=== PATIENT | female | born 1970 | race American Indian/Alaskan Native ===

== ENCOUNTER 2020-03-06 17:21 | Emergency (ER) | payer OTHER ==
[2020-03-06 18:18] LABS: Basophils % (Auto) 0.6 % (0.0-1.8); Eosinophils # (Auto) 0.2 K/mm3 (0.0-0.4); Eosinophils % (Auto) 3.7 % (0.0-4.3); Hematocrit 41.8 % (30.3-42.9); Hemoglobin 14.1 gm/dl (10.1-14.3); Lymphocytes # (Auto) 2.8 K/mm3 (1.2-5.4); Lymphocytes % (Auto) 45.5 % (13.4-35.0); Mean Corpuscular HGB Conc 34 % (30-34); Mean Corpuscular Volume 90 fl (79-97); Monocytes # (Auto) 0.5 K/mm3 (0.0-0.8); Monocytes % (Auto) 8.7 % (0.0-7.3); Platelet Count 324 K/mm3 (140-440); Red Blood Count 4.64 M/mm3 (3.65-5.03)
[2020-03-06 18:29] LABS: INR 0.92 (0.87-1.13); Partial Thromboplastin Time 27.3 Sec. (24.2-36.6)
[2020-03-06 18:34] LABS: Alanine Aminotransferase 15 units/L (7-56); Albumin 4.3 g/dL (3.9-5); Blood Urea Nitrogen 10 mg/dL (7-17); Calcium 9.6 mg/dL (8.4-10.2); Hemolysis Index 12
--- NOTE | 2020-03-06 18:47 | Cat Scan Report ---
CT head/brain wo con INDICATION: weakness/blurred vision. TECHNIQUE: Routine CT head without contrast. All CT scans at this location are performed using CT dos e reduction for ALARA by means of automated exposure control. COMPARISON: None. FINDINGS: BRAIN / INTRACRANIAL CONTENTS: No acute hemorrhage, mass effect, midline shift, or hydrocephalus. No appreciable acute large territorial or lacunar infarct. No chronic infarct or focal atrophy. Normal b rain volume and ventricular/sulcal size for age. ORBITS: No significant abnormality of visualized orbits. SINUSES / MASTOIDS: No significant abnormality of visualized sinuses and mastoid air cells. ADDITIONAL FINDINGS: None. IMPRESSION: 1. No acute intracranial abnormality. Signer Name: Tahir Gómez MD Signed: 03/06/2020 6:42 PM Workstation Name: [id number]
[2020-03-06 18:48] LABS: BUN/Creatinine Ratio 14
[2020-03-06] MEDS ORDERED: IBUPROFEN 400 MG TAB PO ONE (22:03)
[2020-03-06] MEDS ORDERED: ACETAMINOPHEN 325 MG TAB PO ONE (22:03)
--- NOTE | 2020-03-06 22:13 | Emergency Department Report ---
ED General Adult HPI - General Chief complaint: Neuro Symptoms/Deficit Stated complaint: ANXIETY/HYPERTENSION PUI?: No Time Seen by Provider: 03/06/20 21:39 Source: patient, RN notes reviewed Mode of arrival: Ambulatory Limitations: No Limitations - History of Present Illness Initial comments: The patient was evaluated in the emergency department for symptoms described in the history of present illness. He/she was evaluated in the context of the global COVID-19 pandemic, which necessitated consideration that the patient alberta ht be at risk for infection with the virus that causes COVID-19. Institutional protocols and algorithms that pertain to the evaluation of patients at risk for COVID-19 are in a state of rapid change based on information released by regulatory bodies including the CDC and federal and state organizations. These policies and algorithms were followed during the patient's care in the emergency department. Please note that these policies, procedures and recommendations changed on a rapid basis. The patient is a pleasant 49-year-old female, who states that she is not , has a distant history of hysterectomy, following up with a new primary care doctor this Sunday, who denies chronic medical conditions, and denies DVT, pulmonary embolism risk factors. The patient has not been sleeping well secondary to multiple reasons, and presents to the ER with a complaint of anxiety, heart racing, nontraumatic right-sided trapezius pain/paracervical neck pain, report of blurry vision, and generalized weakness. The symptoms are present for 2 weeks. They are intermittent. They worsen when she gets anxious. The patient does not have a severe or thunderclap headache, there is no midline neck pain, no recent trauma or chiropractic manipulation. She is right-hand dominant, and does cleaning for work. She has intermittent heart racing that is painless, associated with anxiety. There is no shortness of breath, vomiting, abdominal pain, irritative or obstructive urinary symptoms, and she is not homicidal or suicidal. She states that she has not had "a vision check" in a few years. She has no loss of vision. Symptoms present for the past 2 weeks, intermittent, and worsen with anxiety. -: Gradual, week(s) Severity scale (0 -10): 0 Consistency: intermittent Improves with: none Worsens with: other (As per history of present illness) - Related Data Allergies Allergy/AdvReac Type Severity Reaction Status Date / Time No Known Allergies Allergy Unverified 03/06/20 17:22 ED Review of Systems ROS: Stated complaint: ANXIETY/HYPERTENSION Other details as noted in HPI Constitutional: denies: fever Eyes: denies: eye pain, eye discharge ENT: denies: epistaxis Respiratory: denies: cough Cardiovascular: palpitations. denies: chest pain Gastrointestinal: denies: abdominal pain, nausea, vomiting Genitourinary: denies: dysuria Musculoskeletal: myalgia Neurological: headache. denies: weakness, numbness, paresthesias, confusion Psychiatric: anxiety. denies: homicidal thoughts, suicidal thoughts ED Past Medical Hx - Past Medical History Previous Medical History?: No - Surgical History Past Surgical History?: No - Social History Smoking Status: Never Smoker ED Physical Exam - General Limitations: No Limitations General appearance: alert, anxious, obese - Head Head exam: Present: atraumatic, normocephalic - Eye Eye exam: Present: normal appearance, PERRL, EOMI, other (Visual acuity intact to finger counting, color perception, reading at a close distance). Absent: nystagmus - ENT ENT exam: Present: normal exam, normal orophraynx, mucous membranes moist, nor mal external ear exam - Neck Neck exam: Present: normal inspection, full ROM, other (There is no carotid bruit). Absent: tenderness, meningismus - Respiratory Respiratory exam: Present: normal lung sounds bilaterally. Absent: respiratory distress - Cardiovascular Cardiovascular Exam: Present: regular rate, normal rhythm, normal heart sounds. Absent: bradycardia, tachycardia, irregular rhythm, systolic murmur, diastolic murmur, rubs, gallop - GI/Abdominal GI/Abdominal exam: Present: soft, normal bowel sounds. Absent: distended, tenderness, guarding, rebound, rigid, pulsatile mass - Extremities Exam Extremities exam: Present: normal inspection, full ROM, other (2+ pulses noted in the bilateral upper and lower extremities. There is no palpable cord. negative Homans sign. Muscular compartments are soft. The pelvis is stable.). Absent: pedal edema, calf tenderness - Back Exam Back exam: Present: normal inspection, full ROM. Absent: tenderness, CVA tenderness (R), CVA tenderness (L), paraspinal tenderness, vertebral tenderness - Neurological Exam Neurological exam: Present: alert, oriented X3, normal gait, other (There is no facial droop. The tongue is midline. Extraocular movements are intact bilater ally. There is 5 out of 5 strength in bilateral upper and lower extremities. Sensation is intact to light touch bilateral upper and lower extremities. There is no past-pointing. There is no pronator drift. There is normal [id number]. There is a normal gait.). Absent: motor sensory deficit - Skin Skin exam: Present: warm, dry, intact, normal color. Absent: rash ED Course Vital Signs 03/06/20 03/06/20 17:26 22:18 Temperature 98.1 F Pulse Rate 104 H 84 Respiratory 20 Rate Blood Pressure 183/106 164/74 [Right] O2 Sat by Pulse 98 98 Oximetry - Reevaluation(s) Reevaluation #1: 03/06/20 22:18 No recent chiropractic manipulation, no recent fender benders. Full range of motion to the neck noted on exam. No meningeal signs ED Medical Decision Making - Lab Data Result diagrams: 03/06/20 17:42 03/06/20 17:42 Vital Signs 03/06/20 17:26 Temperature 98.1 F Pulse Rate 104 H Respiratory 20 Rate Blood Pressure 183/106 [Right] O2 Sat by Pulse 98 Oximetry Lab Results 03/06/20 03/06/20 03/06/20 Range/Units 17:42 17:42 17:42 WBC 6.2 (4.5-11.0) K/mm3 RBC 4.64 (3.65-5.03) M/mm3 Hgb 14.1 (10.1-14.3) gm/dl Hct 41.8 (30.3-42.9) % MCV 90 (79-97) fl MCH 30 (28-32) pg MCHC 34 (30-34) % RDW 13.0 L (13.2-15.2) % Plt Count 324 (140-440) K/mm3 Lymph % (Auto) 45.5 H (13.4-35.0) % [place] % (Auto) 8.7 H (0.0-7.3) % Eos % (Auto) 3.7 (0.0-4.3) % Baso % (Auto) 0.6 (0.0-1.8) % Lymph # 2.8 (1.2-5.4) K/mm3 [place] # 0.5 (0.0-0.8) K/mm3 Eos # 0.2 (0.0-0.4) K/mm3 Baso # 0.0 (0.0-0.1) K/mm3 Seg Neutrophils % 41.5 (40.0-70.0) % Seg Neutrophils # 2.6 (1.8-7.7) K/mm3 PT 12.5 (12.2-14.9) Sec. INR 0.92 (0.87-1.13) APTT 27.3 (24.2-36.6) Sec. Sodium 136 L (137-145) mmol/L Potassium 3.7 (3.6-5.0) mmol/L Chloride 98.9 (98-107) mmol/L Carbon Dioxide 22 (22-30) mmol/L Anion Gap 19 mmol/L BUN 10 (7-17) mg/dL Creatinine 0.7 (0.6-1.2) mg/dL Estimated GFR > 60 ml/min BUN/Creatinine Ratio 14 % Glucose 114 H (65-100) mg/dL Calcium 9.6 (8.4-10.2) mg/dL Magnesium (1.7-2.3) mg/dL Total Bilirubin 0.60 (0.1-1.2) mg/dL AST 16 (5-40) units/L ALT 15 (7-56) units/L Alkaline Phosphatase 81 (35-129) units/L Total Creatine Kinase (30-135) units/L Troponin T (0.00-0.029) ng/mL Total Protein 8.2 (6.3-8.2) g/dL Albumin 4.3 (3.9-5) g/dL Albumin/Globulin Ratio 1.1 % Salicylates (2.8-20.0) mg/dL Acetaminophen (10.0-30.0) ug/mL Plasma/Serum Alcohol (0-0.07) % 03/06/20 03/06/20 03/06/20 Range/Units 17:42 17:50 17:50 WBC (4.5-11.0) K/mm3 RBC (3.65-5.03) M/mm3 Hgb (10.1-14.3) gm/dl Hct (30.3-42.9) % MCV (79-97) fl MCH (28-32) pg MCHC (30-34) % RDW (13.2-15.2) % Plt Count (140-440) K/mm3 Lymph % (Auto) (13.4-35.0) % [place] % (Auto) (0.0-7.3) % Eos % (Auto) (0.0-4.3) % Baso % (Auto) (0.0-1.8) % Lymph # (1.2-5.4) K/mm3 [place] # (0.0-0.8) K/mm3 Eos # (0.0-0.4) K/mm3 Baso # (0.0-0.1) K/mm3 Seg Neutrophils % (40.0-70.0) % Seg Neutrophils # (1.8-7.7) K/mm3 PT (12.2-14.9) Sec. INR (0.87-1.13) APTT (24.2-36.6) Sec. Sodium (137-145) mmol/L Potassium (3.6-5.0) mmol/L Chloride (98-107) mmol/L Carbon Dioxide (22-30) mmol/L Anion Gap mmol/L BUN (7-17) mg/dL Creatinine (0.6-1.2) mg/dL Estimated GFR ml/min BUN/Creatinine Ratio % Glucose (65-100) mg/dL Calcium (8.4-10.2) mg/dL Magnesium 1.70 (1.7-2.3) mg/dL Total Bilirubin (0.1-1.2) mg/dL AST (5-40) units/L ALT (7-56) units/L Alkaline Phosphatase (35-129) units/L Total Creatine Kinase 153 H (30-135) units/L Troponin T < 0.010 (0.00-0.029) ng/mL Total Protein (6.3-8.2) g/dL Albumin (3.9-5) g/dL Albumin/Globulin Ratio % Salicylates < 0.3 L (2.8-20.0) mg/dL Acetaminophen (10.0-30.0) ug/mL Plasma/Serum Alcohol (0-0.07) % 03/06/20 03/06/20 Range/Units 17:50 17:50 WBC (4.5-11.0) K/mm3 RBC (3.65-5.03) M/mm3 Hgb (10.1-14.3) gm/dl Hct (30.3-42.9) % MCV (79-97) fl MCH (28-32) pg MCHC (30-34) % RDW (13.2-15.2) % Plt Count (140-440) K/mm3 Lymph % (Auto) (13.4-35.0) % [place] % (Auto) (0.0-7.3) % Eos % (Auto) (0.0-4.3) % Baso % (Auto) (0.0-1.8) % Lymph # (1.2-5.4) K/mm3 [place] # (0.0-0.8) K/mm3 Eos # (0.0-0.4) K/mm3 Baso # (0.0-0.1) K/mm3 Seg Neutrophils % (40.0-70.0) % Seg Neutrophils # (1.8-7.7) K/mm3 PT (12.2-14.9) Sec. INR (0.87-1.13) APTT (24.2-36.6) Sec. Sodium (137-145) mmol/L Potassium (3.6-5.0) mmol/L Chloride (98-107) mmol/L Carbon Dioxide (22-30) mmol/L Anion Gap mmol/L BUN (7-17) mg/dL Creatinine (0.6-1.2) mg/dL Estimated GFR ml/min BUN/Creatinine Ratio % Glucose (65-100) mg/dL Calcium (8.4-10.2) mg/dL Magnesium (1.7-2.3) mg/dL Total Bilirubin (0.1-1.2) mg/dL AST (5-40) units/L ALT (7-56) units/L Alkaline Phosphatase (35-129) units/L Total Creatine Kinase (30-135) units/L Troponin T (0.00-0.029) ng/mL Total Protein (6.3-8.2) g/dL Albumin (3.9-5) g/dL Albumin/Globulin Ratio % Salicylates (2.8-20.0) mg/dL Acetaminophen 5.0 L (10.0-30.0) ug/mL Plasma/Serum Alcohol < 0.01 (0-0.07) % - EKG Data -: EKG Interpreted by Me EKG shows normal: sinus rhythm Rate: normal - EKG Data When compared to previous EKG there are: previous EKG unavailable 03/06/20 22:09 There is no prior EKG available for comparison. Sinus rhythm, 90 bpm, left axis deviation, poor R wave progression, QTC is 422 ms. The EKG is abnormal. The EKG is not a STEMI. Patient does not appear to have first-degree AV block on my evaluation of this EKG, contrary to computer interpretation. - Radiology Data Radiology results: report reviewed, image reviewed Noncontrast CT scan of the brain is negative for acute disease - Medical Decision Making Differential diagnosis, including but not limited to: Electrolyte derangement, anxiety, intracranial lesion, general medical examination Assessment and plan: 49-year-old female with resolved tachycardia, incidental elevated blood pressure, without DVT or pulmonary embolism risk factors, not currently tachycardic, tachypneic or hypoxic, heart rate 90 bpm, blood pressure 165/70, low risk by Wells criteria, GCS 15, NIH score of 0, low risk for major adverse cardiac event as per heart score, with an unremarkable and benign physical examination with the exception of elevated blood pressure and obvious anxiety. Patient's been having 2 weeks of symptoms. She has no objective abnormalities on her physical exam. Her laboratory studies are unremarkable. Counseled patient that she is very unlikely to have an emergent condition present at this time. Counseled patient on need for diet and lifestyle modific ations, such as weight loss, exercise, hydration, and proper sleep hygiene. We also discussed self calming techniques, and mindfulness/meditation applications. She has follow-up with a primary care doctor on Sunday. 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 She took a picture of her EKG with her private cell phone, she will follow-up with an outpatient primary care doctor or sales service manager for incidental EKG abnormalities. Patient felt comfortable this plan of care Critical care attestation.: If time is entered above; I have spent that time in minutes in the direct care of this critically ill patient, excluding procedure time. ED Disposition Clinical Impression: Elevated blood pressure reading, History of headache, History of tachycardia Disposition: DC-01 TO HOME OR SELFCARE Is pt being admited?: No Does the pt Need Aspirin: No Condition: Stable Additional Instructions: Participate in physical activities and exercise as tolerated. Exercise at least 3-6 times per week as physically tolerated. Drink 4 to 6 cups of water per day, eat plenty of fiber, vegetables, lean protein, avoid sugar, simple carbohydrates, processed foods. Minimize consumption of caffeine, alcohol, energy drinks and stimulants. Make certain to get at least 6 to 7 hours of good quality uninterrupted sleep every day. Prior to going to sleep, avoid distractions such as cell phone, Internet, tablet, TV and video games. Patient may download meditation applications/mindfulness applications on her cell phone, which may assist with her symptoms. The patient can also practice self calming techniques as discussed Please follow-up with your primary care doctor or sales service manager within the next 5 to 7 days. Please return to the emergency room right away with new pain, worsening pain, migration of pain, projectile vomiting, change in mental status, confusion, inability to tolerate liquid feeds, new, worsened or different symptoms not present on the initial emergency room evaluation. Patient may take [id number] acetaminophen/Tylenol, 650 mg by mouth, every 4-6 hours as needed for pain, maximum daily dose to not exceed 3 g per 24 hours. Patient may also take ibuprofen, 400 mg by mouth, every 4-6 hours as needed for pain. Referrals: KEESHA DESIR MD [Staff Physician] - 3-5 Days ARIAS MARTINEZ MD [Staff Physician] - 3-5 Days
[2020-03-06 22:19] VITALS: BP 164/74
== END 2020-03-06 22:33 | disposition home or self-care (01) ==
LOC: ED 17:21
DX: R03.0 Elevated blood-pressure reading, without diagnosis of hypertension (principal); R51 Headache; R00.0 Tachycardia, unspecified
CPT/HCPCS: 36415; 70450; 80053; 80320; 82550; 82962; 83735; 84484; 85025; 85610; 85730; 93005; G0480